=== PATIENT | female | born 1990 | race Caucasian/White ===

== ENCOUNTER 2017-02-10 23:24 | Emergency (ER) | payer OTHER ==
[~2017-02-10] VITALS: Ht 165.1 cm; Wt 86.2 kg
[2017-02-10 23:30] VITALS: BP_SYST 144
[2017-02-11 02:00] VITALS: BP_SYST 138
== END 2017-02-11 02:00 | disposition home or self-care (01) ==
LOC: SED 23:24
DX: R07.89 Other chest pain (principal); M54.2 Cervicalgia; M25.511 Pain in right shoulder; R03.0 Elevated blood-pressure reading, without diagnosis of hypertension
CPT/HCPCS: 71020-TC; 73000-TC; 81025; 99284